=== PATIENT | male | born 1975 | race Caucasian/White ===

== ENCOUNTER 2024-01-17 05:49 | Day surgery (SDC) | payer OTHER, SELFPAY ==
[2024-01-01 10:17] VITALS: BMI 34.3
[2024-01-17 06:20] VITALS: BP 139/89; PULSE 74; RESP 18; TEMP 36.8; O2SAT 100; BMI 34.4
--- NOTE | 2024-01-17 07:14 | PM.HPGS ---
History of Present Illness History of Present Illness Consent: Risks, benefits, and alternatives have been discussed and questions answered. Patient agrees to proceed with procedure. Chief complaint: Positive Cologuard Narrative: Michael Childers is a 48 year old male presents for screening colonoscopy. Patient is current weight appetite and bowel movements are normal. Patient denies abdominal pain. he has had no bleeding. Patient denies any change in bowel habits. Recent Cologuard test was found to be positive. Family history is noncontributory. Review of Systems Review of Systems: Review of systems is noncontributory. [facility] Past Medical History Medical History Dyslipidemia Hypercholesteremia Infected eye lid Otitis media URI, acute Family History Family History Other Family history of coronary artery disease Social History Social History Smoking status: Never smoker Second hand tobacco smoke exposure: No Alcohol intake: current Drinks per week: 4 Alcohol use details: beer Substance use: never Substance use type: does not use Living arrangements: with family Spiritual care concerns: No Meds Home Medications and Allergies Home Medications Medication Instructions Recorded Confirmed Type No Home Medications 01/17/24 01/17/24 History Allergies Allergy/AdvReac Type Severity Reaction Status Date / Time No Known Allergies Verified 01/17/24 06:09 Vital Signs Vital Signs - 24 hr 01/17/24 06:20 Temperature 98.3 F Pulse Rate 74 Respiratory Rate 18 Blood Pressure 139/89 Pulse Oximetry 100 Oxygen Delivery Room Air Exam Narrative: Physical exam reveals patient to be alert. Vital signs stable. HEENT exam is unremarkable. Patient is anicteric. Lungs are clear to auscultation and percussion. heart is without murmur or extra sounds. Abdomen bowel sounds are present soft nontender with no organomegaly. Digital and External rectal exam is normal. Assessment and Plan Assessment and plan (1) Positive colorectal cancer screening using Cologuard test: Code(s): R19.5 - Other fecal abnormalities Status: Acute Assessment and Plan: Colonoscopy to be performed today. Patient had a positive Cologuard test.
--- NOTE | 2024-01-17 07:25 | WPDANESEPPF ---
Anes - Initial Pre Proc Eval Procedure: Operation Date: 01/17/24 07:30 Proposed Procedures p Diagnostic Colonoscopy - Jamil Matias MD Date/Time: 01/17/24 07:25 Surgeon: Jamil Matias MD Pre Op Diagnosis: Positive Cologuard Patient Data Age: 48 Gender: M Height: 1.88 m Weight: 121.8 kg Last Vital Signs Temp 36.8 C 01/17/24 06:20 Pulse 74 01/17/24 06:20 Resp 18 01/17/24 06:20 BP 139/89 01/17/24 06:20 Pulse Ox 100 01/17/24 06:20 O2 Del Method Room Air 01/17/24 06:20 Allergies Allergy/AdvReac Type Severity Reaction Status Date / Time No Known Allergies Verified 01/17/24 06:09 Home Medications Medication Instructions Recorded Confirmed Type No Home Medications 01/17/24 01/17/24 History Patient hx anesthesia problems: none Family hx anesthesia problems: none Results Review: All pre-operative results and documents have been reviewed as part of the pre-operative evaluation. [facility] Past Medical History Medical History Dyslipidemia Hypercholesteremia Infected eye lid Otitis media URI, acute Family History Family History Other Family history of coronary artery disease Social History Social History Smoking status: Never smoker Second hand tobacco smoke exposure: No Alcohol intake: current Drinks per week: 4 Alcohol use details: beer Substance use: never Substance use type: does not use Living arrangements: with family Spiritual care concerns: No Anes - Eval Final PreProcedure Day of Procedure 01/17/24 07:25 Patient weight: obese Heart: regular rate and rhythm Lungs: clear to auscultation Airway: Mallampati scale class II Neurological: alert and oriented Last oral intake: >/= 8 hours ASA classification: II Emergent: no Anesthetic plan: proceed Anesthesia type and monitoring: general GIVS and standard monitoring Results Review: All pre-operative results and documents have been reviewed as part of the pre-operative evaluation. Informed Consent: The patient's anesthetic plan and its attendant risks and benefits were discussed with the patient/family/POA. Questions were solicited and answers provided to the satisfaction of the patient/family/POA.
[2024-01-17] MEDS: LACTATED RINGERS 1,000 ML 150 ML IV CONT (07:28)
[2024-01-17 07:46] VITALS: BP 112/72; PULSE 71; RESP 16; O2SAT 98
[2024-01-17 07:56] VITALS: BP 122/80; PULSE 68; RESP 15; O2SAT 100
--- NOTE | 2024-01-17 08:02 | WPDANESPN ---
Anes - Prog Note Post-Op Date/Time: 01/17/24 08:02 Cardiovascular status: normal Respiratory status: normal Airway patency: baseline Mental status: baseline Post-Op hydration status: normal Vital Signs: Last Vital Signs Temp 36.8 C 01/17/24 06:20 Pulse 68 01/17/24 07:56 Resp 15 01/17/24 07:56 BP 122/80 01/17/24 07:56 Pulse Ox 100 01/17/24 07:56 O2 Del Method Room Air 01/17/24 07:56 Pain Score (VAS): 0 I/O: Intake & Output 01/16/24 01/17/24 01/17/24 23:59 07:59 15:59 Intake Total 400 Balance 400 Patient Feedback: Patient satisfied with anesthetic care.
[2024-01-17 08:06] VITALS: BP 131/93; PULSE 65; RESP 14; O2SAT 100
== END 2024-01-17 08:14 | disposition home or self-care (01) ==
PROVIDERS: PCP Family Medicine; Visit Provider Internal Medicine Gastroenterology
PROC: 0DJD8ZZ Inspection of Lower Intestinal Tract, Via Natural or Artificial Opening Endoscopic (ICD-10-PCS; CPT 45378; principal; 2024-01-17 07:30)
DX: R19.5 Other fecal abnormalities (principal); K57.30 Diverticulosis of large intestine without perforation or abscess without bleeding
CPT/HCPCS: 45378